=== PATIENT | female | born 1990 | race Caucasian/White ===

== ENCOUNTER 2018-09-25 03:55 | Inpatient (IN) ==
--- NOTE | 2018-09-25 00:50 | OB/GYN History & Physical ---
Date of Encounter: 09/25/18 Time of Encounter: 00:46 Assessment and Plan (1) 39 weeks gestation of Current visit: Yes Status: Acute admitted for delivery History of Present Illness Chief complaint: spontaneous labor HPI: Ms. Barnes is a 28 year old female @ 39w6d presents to labor and delivery with complaints of contractions that started around 1130 am on 09/24/18. Patient denies any LOF and reports good movement. Patient receives care with [facility] however, she was a late transfer to the midwives at 34 weeks gestation from [facility]. Patient denies any complications with current Blood type: O Positive Rubella: Immune Hep B: Nonreactive GBS: Negative Past Med Surg Social Fam HX - Past Medical History Source: patient Psychiatric history: no psych history - Past Surgical History Additional surgical history: adnoidectomy, wisdom teeth - Social History Smoking Status: Never smoker Smokeless Tobacco Status: No Alcohol use: none Drug use: none Current living situation: Home - Independent Activity Level: Independent ambulation Recent Out of Country Travel Within the Last 8 Weeks: No Exposure or Possible Exposure to Illness During Travel: No - Family History Mother Living Status: Still Living Hx Family Cardiac Disorders: No Hx Family Respiratory Disorders: No Hx Family Cancer: No Hx Family GI Disorders: No Hx Family Genitourinary Disorders: No Hx Family Endocrine Disorder: No Hx Family Musculoskeletal Disorders: No Hx Family Neuromuscular Disorders: No Hx Family Neurologic Disorders: No Hx Family HEENT Disorders: No Hx Family Autoimmune Disorders: No Hx Family Reproductive Disorders: No Hx Family Psychosocial Disorders: No Hx Family Medical Disorders: No Obstetrical History - Pregnancies : 2 Para: 1 Term: 1 : 0 Ab's: 0 Livin Medications and Allergies Formula Tablet 1 tab PO DAILY 09/25/18 [History] Allergy/AdvReac Type Severity Reaction Status Date / Time No Known Allergies Allergy Verified 09/25/18 00:39 Review of System OB - Constitutional Constitutional ROS IM: no chills, no fever(s), no headache(s) - Cardiovascular Cardiovascular: no edema, no palpitations, no syncope - Respiratory Respiratory: no cough, no dyspnea - Gastrointestinal Gastrointestinal: no cramping, no heartburn, no nausea, no vomiting - Genitourinary Genitourinary: no flank pain, no urinary hesitancy, no vaginal discharge, no vaginal odor Exam - Constitutional Constitutional: well developed, well nourished, no acute distress, average body habitus - HEENT HEENT: Normocephaly, Mucus Membranes Moist - Neck Neck exam: full ROM, supple - Lungs Respiratory exam: CTAB - Cardiovascular Cardiovascular exam: RRR, +S1, +S2 - Abdomen Abdomen: Present: bowel sounds normal, gravid, non tender - Extremities Extremities exam: full ROM, normal capillary refill, normal inspection Deep Tendon Reflex Grade: 2+ Normal - Cervix Dilation: 8 (per RN) Effacement: 100 Station: 0 - Uterus Uterus exam: Present: normal size, normal contour - Anus/Rectum Anus/Rectum: Present: normal perianal skin - Comments Comments: FHR 135 bpm moderate variability +15x15 accels no decels contractions 1-3 min apart. Cat. 1 tracing Results Result Diagrams: 09/25/18 00:54 All other labs normal. - VTE Reasons for not Prescribing Prophylaxis: Treatment not Indicated - Low risk for VTE
[2018-09-25 01:13] LABS: Basophils # 0.1 K/mcL (0.0-0.2); Basophils % 0.6 %; Eosinophils # 0.1 K/mcL (0.0-0.6); Eosinophils % 0.3 %; Hematocrit 37.3 % (35.3-44.9); Hemoglobin 12.6 g/dL (11.5-15.4); Immature Granulocytes % 3.5 % (0-4); Lymphocytes # 2.5 K/mcL (0.6-4.6); Lymphocytes % 13.6 %; Mean Corpuscular HGB Conc 33.8 g/dL (31.6-35.5); Mean Corpuscular Hemoglobin 30.8 pg (28.0-33.3); Mean Corpuscular Volume 91.2 fL (83.0-100.0); Mean Platelet Volume 11.3 fL (9.4-12.4); Monocytes # 1.2 K/mcL (0.0-1.3); Monocytes % 6.5 %; Neutrophils # 13.8 K/mcL (1.6-8.9); Platelet Count 210 K/mcL (140-400); Red Blood Count 4.09 M/mcL (3.82-4.97); Red Cell Distribution Width 13.2 % (11.5-14.5); Segmented Neutrophils % 75.5 %; White Blood Count 18.3 K/mcL (4.3-11.1)
[2018-09-25 01:21] LABS: Amphetamine Screen,Urine Negative ng/mL (Cutoff=1000); Barbiturate Screen,Urine Negative ng/mL (Cutoff=200); Benzodiazepines Screen,Urine Negative ng/mL (Cutoff=200); Cannabinoid Screen,Urine Negative ng/mL (Cutoff = 50); Cocaine Screen,Urine Negative ng/mL (Cutoff= 300); Opiate Screen,Urine Negative ng/mL (Cutoff=300); Phencyclidine Screen,Urine Negative ng/mL (Cutoff=25)
[~2018-09-25 03:55] MED LIST: Famotidine 20 MG/2 ML VIAL IVP PRN; Metoclopramide 10 MG/2 ML VIAL IVP PRN; Naloxone 0.4 MG/ML INJ IVP PRN; Ondansetron 4 MG/2 ML VIAL IVP PRN; Ringers Solution, Lactated 1,000 ML IVC SCH
[2018-09-25] MEDS ORDERED: Lidocaine/EPI 1:200k 1% PF 10 ML VIAL ONE (06:11)
--- NOTE | 2018-09-25 07:32 | OB/GYN Procedure Note ---
Delivery - Delivery Date: 09/25/18 Provider: Elsie Stevens Intrapartum events: none Delivery induction: none Delivery monitor: external FHT Anesthesia: local (for repair) Quantitated Blood Loss: 150 - (s) A Infant Delivery Date: 09/25/18 Infant Delivery Time: Presentation: vertex Position: [place] Route of delivery: Gender: Female Viability: Viable at 1 minute: 8 at 5 mins: 8 Shoulder Dystocia: not encountered Specimens collected: cord blood Placenta: spontaneous Cord: nuchal cord (x1), 3 umbilical vessels, nuchal reduced - Repair Episiotomy: none Laceration Description: Perineal - 1st Degree (repaired with 3-0 vicryl), Vaginal (right vaginal wall repaired with 3-0 vicryl) - Complications Delivery complications: none - Disposition Mom disposition: stable in LDR disposition: stable in LDR - Comments Comments: Called to LDR patient is 9.5cm and unblocked. Patient continues to request no SVE at this time and intermittent monitoring with doppler. While standing at the bedside patient had a SROM scant amount of clear fluid. Patient then reports she would like to get in knee chest position on the bed. Patient then reports she feels the urge to push and begins pushing with contractions. FHT noted in the 80's and patient was asked to rotate to her side or back for SVE and FHT monitoring. Patient agreed and SVE was performed patient was 10/100/+2. Under maternal effort patient continued to push with contractions, IV fluid was started lactated ringer fluid bolus along with O2 via mask. Patient spontaneously delivered a viable female infant over a 1st degree perineal laceration. A nuchal x1 was encountered and easily reduced. NO shoulder dystocia or meconium was encountered. Infant was placed on maternal abdomen. A right side vaginal wall laceration was noted. 1% lidocaine with epi was used to anesthetize site and was repaired with 3-0 vicryl. Patient requests the cord remain connected until cord was white in color. At this time this CNM continued with repairing the 1st degree perineal laceration. Patient tolerated well. Cord was then clamped and cut. Cord blood was collected. Patient requested that placenta deliver spontaneously without any assistance. Placenta delivered spontaneously and visually intact. Patient refused Pitocin following delivery of placenta and requested only fundal rubs if necessary. Patient was educated on self fundal massage. EBL 150cc. Pericare provided, ice pack to perineum both Mother and stable in LDR for 2 hour recovery. No weight was measured at this time per patient request. Apgars 8/8.
[2018-09-25] MEDS ORDERED: Oxytocin 20 units/ LR 1000 mL 20 UNIT/1,000 ML BAG IVC SCH (09:47)
[2018-09-25] MEDS ORDERED: Acetaminophen 325 MG TABLET PO PRN (09:47)
[2018-09-25] MEDS ORDERED: Benzocaine/Menthol 56 GM AEROSOL SPRAY TP PRN (09:47)
[2018-09-25] MEDS ORDERED: Ibuprofen 600 MG TABLET PO PRN (09:47)
[2018-09-25] MEDS ORDERED: *HR* HYDROcodone/Acet 5/325 mg TABLET PO PRN (09:47)
[2018-09-25] MEDS ORDERED: Lanolin 7 G OINT...G. TP PRN (09:47)
[2018-09-25] MEDS: Prenatal Vit/FA 1 EACH TABLET PO SCH (13:23)
--- NOTE | 2018-09-26 08:06 | Discharge Summary ---
Date of Encounter: 09/26/18 Time of Encounter: 08:04 - Discharge Diagnosis (1) 39 weeks gestation of Priority: Secondary Status: Acute (2) Vaginal delivery Priority: Primary Status: Acute Comments: Continue routine care discharge home today follow up with CNM in 4-6 weeks (3) Breast feeding status of mother Priority: Secondary Status: Acute Comments: support prn - Discharge Medications Prescriptions: New Benzocaine/Menthol Monroe [Dermoplast Monroe] 1 appl TP QID PRN aerosol PRN Reason: See Comments Docusate [Colace] 100 mg PO BID capsule Lanolin [Lansinoh] 1 appl TP TID PRN oint...g. PRN Reason: Sore Nipples Continued Formula Tablet 1 tab PO DAILY Home Medications: Formula Tablet 1 tab PO DAILY 09/25/18 [History] Benzocaine/Menthol Monroe [Dermoplast Monroe] 1 appl TP QID PRN aerosol 09/26/18 [Rx] Docusate [Colace] 100 mg PO BID capsule 09/26/18 [Rx] Lanolin [Lansinoh] 1 appl TP TID PRN oint...g. 09/26/18 [Rx] Allergies/Adverse Reactions: Allergy/AdvReac Type Severity Reaction Status Date / Time No Known Allergies Allergy Verified 09/25/18 00:39 Data Procedures and tests throughout hospitalization: Laboratory Tests 09/25/18 09/25/18 00:54 00:54 WBC 18.3 H RBC 4.09 Hgb 12.6 Hct 37.3 MCV 91.2 MCH 30.8 MCHC 33.8 RDW 13.2 Plt Count 210 MPV 11.3 Immature Gran % 3.5 Seg Neutrophils % 75.5 Lymphocytes % 13.6 Monocytes % 6.5 Eosinophils % 0.3 Basophils % 0.6 Neutrophils # 13.8 H Lymphocytes # 2.5 Monocytes # 1.2 Eosinophils # 0.1 Basophils # 0.1 Urine Opiates Screen Negative Ur Barbiturates Screen Negative Ur Phencyclidine Scrn Negative Ur Amphetamines Screen Negative U Benzodiazepines Scrn Negative Urine Cocaine Screen Negative U Marijuana (THC) Screen Negative Ur Drug Screen Interp See Below Date of admission: 09/25/18 03:56 Consults: 09/25/18 09:47 Consult to Business Continuity Coordinator [CONS] Routine Comment: Vaginal delivery, consult needed Discharging clinician: Elsie Stevens Anticipated date of discharge: 09/26/18 - Patient Status Disposition: Home, Self-Care Condition: Good Functional capacity at discharge: independent ambulation - Discharge Instructions Follow Up With: Elsie Stevens CNM [Non-Partnered Physician] - - Diet and Activity Activity: increase activity as tolerated Diet: regular diet Hospital Course Reason for admission: active labor Delivery: Episiotomy: none Laceration: vaginal side wall (right side), 1st degree Other procedures: none complications: none Discharge diagnosis: IUP at term delivered baby: female (breast feeding) Time Attestation: Total time spent providing and/or coordinating discharge services: Time Spent: Less than 30 minutes Exam - Constitutional Vitals: Temp Pulse Resp BP Pulse Ox 97.8 F 76 14 110/71 98 09/26/18 04:55 09/26/18 04:55 09/26/18 04:55 09/26/18 04:55 09/26/18 04:55 General appearance IM: A&O X 3, pleasant, answers questions appropriately - Respiratory Respiratory exam: Present: CTAB - Cardiovascular Cardiovascular exam IM: Present: RRR, +S1, +S2 - GI/Abdominal GI/Abdominal exam IM: normal bowel sounds - Uterine Tone: Firm Uterus Position: 1 Finger Below Umbilicus, Midline - Extremities Exam Extremities exam IM: Present: full ROM, normal capillary refill, normal inspection - Neurological Exam Neurological exam: alert, oriented X3, reflexes normal
[2018-09-26 08:11] VITALS: BP 98/66
[2018-09-26] MEDS: Prenatal Vit/FA 1 EACH TABLET PO SCH (08:18)
== END 2018-09-26 11:45 | disposition home or self-care (01) | DRG 807 ==
LOC: 1NENULAB → 1NENUOBS 09:41
PROVIDERS: ADMIT Advanced Practice Midwife; ATTEND Advanced Practice Midwife